=== PATIENT | female | born 1965 | race Caucasian/White ===

== ENCOUNTER 2017-05-26 01:04 | Inpatient (IN) ==
[2017-05-26] MEDS ORDERED: SODIUM CHLORIDE 1,000 ML IV STA (01:43)
[2017-05-26] MEDS ORDERED: HUMULIN R SUBCUT STA (01:43)
--- NOTE | 2017-05-26 01:48 | ED.PDOC ---
General ED Provider: Dr. ZAIN JIM Chief Complaint: Diabetes Stated Complaint: Has been here from out of town for two week now has noticed elevated blood glucose for 3 days. Has had polyurea and increased thirst. states that her blood glucose has been poorly controlled over the last few months with A1c > 10. the last was 13 few weeks ago. States she is stressed due to son and [id number] being incarcerated and has not eating much. Started having nausea and vomiting today. Has been hospitalized before for blood glucose > 1000 Time Seen by Physician: 01:46 Mode of Arrival: Walk-In Information Source: Patient Exam Limitations: No limitations Nursing and Triage Documentation Reviewed and Agree: Yes Endocrine Complaint Exam - Diabetic Complication Complaint/Exam Onset/Duration: 3 days Symptoms Are: Still present Timing: Constant Initial Severity: Moderate Current Severity: Moderate Aggravating: Reports: Medication change Alleviating: Reports: None Associated Signs and Symptoms: Reports: Polydipsia, Polyuria, Abdominal pain ( from vomiting ), Nausea, Vomiting Related History: Reports: DM 2 Last Glucometer Reading: HIGH Cardiac Risk Factors: Reports: DM, Hypertension CVA Risk Factors: Reports: DM, Hypertension Serious Bacterial Infection Risk Factors: Reports: None Acetone on Breath: No Dry Mucous Membranes: No Kussmaul Respirations: No Glascow Coma Scale (see protocol): 15 Focal Weakness: None Focal Sensory Loss: None Gait: Normal Nystagmus Present: No Gag Reflex Present: No Romberg Test Positive: No Babinski Sign: Negative Right, Negative Left Heel to Toe Normal: No Differential Diagnoses: Diabetic Ketoacidosis, Hyperosmolar State, Hyperglycemia Review of Systems - Review Of Systems Constitutional: Reports: Weakness, Loss of appetite Eyes: Reports: No symptoms Ears, Nose, Mouth, Throat: Reports: No symptoms Respiratory: Reports: No symptoms Cardiac: Reports: No symptoms GI: Reports: Abdominal pain, Nausea, Vomiting : Reports: No symptoms Musculoskeletal: Reports: No symptoms Skin: Reports: No symptoms Neurological: Reports: Anxiety, Depressed, Emotional problems Endocrine: Reports: Increased thirst Hematologic/Lymphatic: Reports: No symptoms All Other Systems: Reviewed and Negative Past Medical History - Past Medical History Endocrine: Reports: DM 2, Hypothyroid Cardiovascular: Reports: Hypertension Respiratory: Reports: COPD Hematological: Reports: None Gastrointestinal: Reports: GERD Genitourinary: Reports: None Neuro/Psych: Reports: TIA, Anxiety, Depression Musculoskeletal: Reports: Back Pain (Herniated discs) Cancer: Reports: None Last Menstrual Period: PT HAS HAD A HYSTERECTOMY - Surgical History General Surgical History: Reports: Hysterectomy, (x2), Hernia Repair - Family History Family History: Reports: Unknown - Social History Smoking Status: Current every day smoker, Light tobacco smoker Hx Substance Use: No Alcohol Screening: None - Immunizations Tetanus Shot up to Date: Yes Physical Exam - Physical Exam Appearance: Ill-appearing Ill-appearing: Moderate Pain Distress: Moderate Eyes: IRVIN, EOMI, Conjunctiva clear ENT: Nose normal, Dry mucosa Neck: Supple Respiratory: Airway patent, Breath sounds clear, Breath sounds equal, Respirations nonlabored Cardiovascular: Pulses normal, No rub, No murmur, Tachycardia GI/: Soft, Nontender, No masses, Bowel sounds normal, No Organomegaly Musculoskeletal: Normal strength, ROM intact, No edema, No calf tenderness Skin: Warm, Dry, Normal color Neurological: Sensation intact, Motor intact, Alert, Oriented Psychiatric: Anxious Physician Notification - Case Discussed Physician Notified: Dr Webb Time of Notification: 02:45 Critical Care Note - Critical Care Note Total Time (mins): 35 Course - Course Hematology/Chemistry: 05/26/17 01:52 Orders, Labs, Meds: Lab Review 05/26/17 01:52 WBC 10.96 H RBC 4.85 Hgb 14.2 Hct 40.6 MCV 83.7 MCH 29.3 MCHC 35.0 RDW Coeff of Carlos A 13.2 Plt Count 170 Immature Gran % (Auto) 0.4 Neut % (Auto) 55.1 Lymph % (Auto) 36.0 Cooke % (Auto) 5.0 Eos % (Auto) 2.5 Baso % (Auto) 1.0 Immature Gran # (Auto) 0.0 Neut # 6.0 Lymph # 4.0 H Cooke # 0.6 Eos # 0.3 Baso # 0.1 Orders Category Date Time Status ABG DRAW REQUEST Stat CARDIO 05/26/17 01:48 Ordered BLOOD GLUCOSE MONITORING Q1HR CARE 05/26/17 01:44 Active ED ACCUCHECK ASSESSMENT .ONCE EMERGENCY 05/26/17 01:43 Active ED IV/MEDIPORT/POWERPORT .ONCE EMERGENCY 05/26/17 01:43 Active ABG Stat LAB 05/26/17 01:48 Ordered CBC W/ AUTO DIFF Stat LAB 05/26/17 01:52 Completed COMPREHENSIVE METABOLIC PANEL Stat LAB 05/26/17 01:52 Received 0.9 % Sodium Chloride [Saline Flush] MEDS 05/26/17 01:43 Ordered 1 syr IVF PRN PRN Insulin Regular, Human [Humulin R] MEDS 05/26/17 01:43 Discontinued 12 unit SUBCUT ONCE STA Ondansetron HCl/Pf [Zofran 4 mg/2 ml] MEDS 05/26/17 01:49 Discontinued 4 mg IVP ONCE STA Pantoprazole Sodium [Protonix IV] MEDS 05/26/17 01:49 Discontinued 40 mg IVP ONCE STA Sodium Chloride 0.9% [Sodium Chloride] 1,000 ml MEDS 05/26/17 01:43 Active IV BOLUS Medications Generic Name Dose Route Start Last Admin Trade Name Freq PRN Reason Stop Dose Admin Sodium Chloride 1,000 mls @ 1,000 mls/hr 05/26/17 01:43 Sodium Chloride IV 05/26/17 02:42 BOLUS STA Sodium Chloride 1 syr 05/26/17 01:43 Saline Flush IVF PRN PRN To flush IV Discontinued Medications Generic Name Dose Route Start Last Admin Trade Name Freq PRN Reason Stop Dose Admin Insulin Human Regular 12 unit 05/26/17 01:43 Humulin R SUBCUT 05/26/17 01:44 ONCE STA Ondansetron HCl 4 mg 05/26/17 01:49 Zofran 4 Mg/2 Ml IVP 05/26/17 01:50 ONCE STA Pantoprazole Sodium 40 mg 05/26/17 01:49 Protonix Iv IVP 05/26/17 01:50 ONCE STA Vital Signs: Temp Pulse Resp BP Pulse Ox 05/26/17 01:05 97.1 F L 116 H 18 163/80 H 98 Departure - Departure Time of Disposition: 03:08 Disposition: ADMITTED INPATIENT Discharge Problem: Hypovolemia dehydration Hyperglycemia due to type 2 diabetes mellitus Qualifiers: Diabetes mellitus nursing home insulin use: with nursing home use Qualified Code(s): E11.65 - Type 2 diabetes mellitus with hyperglycemia; 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; Z79.4 - long-term (current) use of insulin; Z79.4 - long-term (current) use of insulin; Z79.4 - long-term (current) use of insulin Condition: Fair Pt referred to PMD for follow-up: Yes Allergies/Adverse Reactions: Allergies iodine Adverse Reaction (Verified 05/26/17 01:24) phenobarbital Adverse Reaction (Verified 05/26/17 01:24) Home Medications: Ambulatory Orders Bupropion HCl [Wellbutrin Sr] 150 mg PO DAILY 05/26/17 Cetirizine HCl [Zyrtec] 10 mg PO DAILY 05/26/17 Citalopram Hydrobromide [Celexa] 20 mg PO DAILY 05/26/17 Clonazepam [Klonopin] 1 mg PO BID 05/26/17 Clopidogrel Bisulfate [Plavix] 75 mg PO DAILY 05/26/17 Diclofenac Sodium [Voltaren 1% Gel] 1 applic TP BID PRN 05/26/17 Docusate Sodium 100 mg PO BID PRN 05/26/17 Gabapentin 300 mg PO BID 05/26/17 Gabapentin 600 mg PO BEDTIME 05/26/17 Hydrocortisone Acetate [Anusol-Hc] 25 mg RC DAILY PRN 05/26/17 Insulin Aspart [Novolog Flexpen] 1 unit SQ DIRECTED PRN 05/26/17 Insulin Degludec [Tresiba Flextouch U-100] 56 unit SQ DAILY 05/26/17 Lansoprazole [Prevacid] 30 mg PO DAILY 05/26/17 Levothyroxine Sodium [Synthroid] 50 mcg PO QDAC 05/26/17 Metformin Ex Release HCl [Glucophage Xr 500Mg] 1,000 mg PO BID 05/26/17 Ondansetron HCl [Zofran Tab] 4 mg PO Q8H PRN 05/26/17 Oxycodone-Acetaminophen 10-325 [Percocet 10-325] 1 tab PO DIRECTED 05/26/17 Simethicone [Gas Relief] 80 mg PO DAILY 05/26/17 Simvastatin [Zocor] 40 mg PO BEDTIME 05/26/17 Urea [Aqua Care] 1 applic TP BID 05/26/17
[2017-05-26] MEDS ORDERED: ZOFRAN 4 MG/2 ML IVP STA (01:49)
[2017-05-26] MEDS ORDERED: PROTONIX IV IVP STA (01:49)
[2017-05-26 01:53] LABS: BASOPHILS # (AUTO) 0.1 K/uL (0-0.2); EOSINOPHILS # (AUTO) 0.3 K/ul (0.0-0.7); EOSINOPHILS % (AUTO) 2.5 % (0.0-7.0); HEMATOCRIT 40.6 % (37.0-47.0); HEMOGLOBIN 14.2 g/dl (12.0-16.0); IMMATURE GRANULOCYTE % (AUTO) 0.4 % (0.0-5.0); MEAN CORPUSCULAR HEMOGLOBIN 29.3 pg (27.0-31.0); MEAN CORPUSCULAR VOLUME 83.7 fl (81.0-99.0); MONOCYTES # (AUTO) 0.6 K/uL (0.4-2.0); NEUTROPHILS % (AUTO) 55.1; PLATELET COUNT 170 10^3/uL (140-440); RED BLOOD COUNT 4.85 10^6/ul (4.20-5.40); WHITE BLOOD COUNT 10.96 K/ul (4.6-10.2)
[2017-05-26 02:13] LABS: ALBUMIN 3.4 g/dL (3.4-5.0); ALBUMIN/GLOBULIN RATIO 0.71; ANION GAP 16.2; BILIRUBIN,TOTAL 0.88 mg/dL (0.00-1.20); BUN/CREATININE RATIO 2.91; CALCIUM 9.8 mg/dL (8.2-10.2); CREATININE 1.03 mg/dL (0.60-1.30); POTASSIUM 3.2 mmol/L (3.5-5.10); TOTAL PROTEIN 8.2 g/dL (6.4-8.2)
[2017-05-26 02:31] LABS: ABG BASE EXCESS -1 (-2.0-2.0); ABG HCO3 22.7 (22.0-26.0); ABG PH 7.472 (7.35-7.45); ABG TCO2 24 (22.0-28.0)
[2017-05-26] MEDS ORDERED: ZOFRAN 4 MG/2 ML IVP PRN (02:39)
[2017-05-26 02:49] LABS: ADD URINE MICROSCOPIC NO; BILIRUBIN,URINE Negative (NEGATIVE); KETONES,URINE Negative (NEGATIVE); LEUKOCYTE ESTERASE ,URINE Negative (NEGATIVE); NITRITE,URINE Negative (NEGATIVE); PROTEIN,URINE Negative (NEGATIVE); URINE, BLOOD Negative (NEGATIVE)
[2017-05-26] MEDS ORDERED: COLACE PO PRN (02:51)
[2017-05-26] MEDS ORDERED: NON-FORMULARY MEDICATION (Diclofenac Sodium 1 APPLIC) TP PRN (02:51)
[2017-05-26] MEDS ORDERED: PERCOCET 10-325 PO SCH (03:00)
[2017-05-26] MEDS ORDERED: SODIUM CHLORIDE 0.9%-KCL 20 MEQ 1,000 ML IV SCH (03:00)
[2017-05-26] MEDS ORDERED: KCL 20 MEQ IV SCH (03:06)
[2017-05-26] MEDS ORDERED: SODIUM CHLORIDE 0.9% IV SCH (03:06)
[2017-05-26] MEDS: SODIUM CHLORIDE 1,000 ML IV SCH ×3 (03:06→05:36)
[2017-05-26] MEDS ORDERED: MORPHINE 4 MG/ML VIAL IVP STA (03:07)
[2017-05-26] MEDS ORDERED: REGLAN IVP STA (03:07)
[2017-05-26 04:13] VITALS: BMI 26.6
[2017-05-26] MEDS ORDERED: MORPHINE 4 MG/ML SYRINGE ONE (04:22)
[2017-05-26] MEDS: HUMULIN R SUBCUT PRN ×9 (04:27→20:10)
[2017-05-26] MEDS: SYNTHROID PO SCH (06:08)
[2017-05-26] MEDS: PROTONIX IV IVP SCH (08:50)
[2017-05-26] MEDS: LOVENOX SUBCUT SCH (08:54)
[2017-05-26] MEDS: GLUCOPHAGE PO SCH ×2 (08:56→16:54)
[2017-05-26] MEDS: NEURONTIN PO SCH ×2 (08:56→14:02)
[2017-05-26] MEDS: ZYRTEC PO SCH (08:57)
[2017-05-26] MEDS: MYLICON PO SCH (08:57)
[2017-05-26] MEDS: PLAVIX PO SCH (08:57)
[2017-05-26] MEDS: WELLBUTRIN SR PO SCH (08:57)
[2017-05-26] MEDS: CELEXA PO SCH (08:58)
[2017-05-26] MEDS ORDERED: NEURONTIN PO SCH ×2 (09:00→21:00)
[2017-05-26] MEDS: KLONOPIN PO SCH ×2 (09:00→22:08)
[2017-05-26] MEDS ORDERED: GLUCOPHAGE XR 500MG PO SCH (09:00)
[2017-05-26] MEDS ORDERED: NON-FORMULARY MEDICATION (Clonazepam [Klonopin] 1 MG) PO SCH ×22 (09:00)
[2017-05-26] MEDS: PERCOCET 10-325 PO PRN ×4 (10:07→22:09)
[2017-05-26] MEDS: UREA TP SCH ×2 (10:12→22:08)
[2017-05-26] MEDS: SODIUM CHLORIDE 0.9%-KCL 20 MEQ 1,000 ML IV SCH ×2 (12:25→19:56)
--- NOTE | 2017-05-26 13:26 | CT ---
EXAM: CT of the abdomen pelvis without contrast History: Abdominal pain and hernia. Technique: Multiplanar CT images through the abdomen pelvis were obtained without the administration of IV contrast Findings: Lung bases are free of consolidation. Calcified granulomas seen within the lower lungs. No acute osseous abnormalities. Status post cholecystectomy. The liver is enlarged and demonstrates fatty infiltration with nodular surface contour. Calcified granulomas within the spleen. No peripancreatic inflammation. Adrenal g lands are unremarkable. There are upper abdominal collateral vessels. The appendix is normal. No r enal stones and no hydronephrosis. No bladder wall thickening. Uterus is not seen. Previous lower anterior abdominal wall hernia repair. No protruding bowel. 4.5 cm x 2.4 cm lobulated fat containin g lesion near the site of previous hernia repair with adjacent scarring. Impression: 1. No acute intra-abdominal or pelvic process. 2. Cirrhotic appearing liver. 3. Upper abdominal collateral vessels suggesting portal venous hypertension. 4. Previous lower anterior abdominal hernia repair. There is lobulated fat density and scarring lamont r the hernia repair site probably related to fat necrosis. There is no bowel obstruction.
[2017-05-26] MEDS ORDERED: LANTUS SUBCUT SCH (21:00)
[2017-05-26] MEDS ORDERED: ZOCOR PO SCH (21:00)
[2017-05-27] MEDS: PERCOCET 10-325 PO PRN ×3 (02:17→10:05)
[2017-05-27] MEDS: HUMULIN R SUBCUT PRN ×2 (02:18→11:30)
[2017-05-27] MEDS: SODIUM CHLORIDE 0.9%-KCL 20 MEQ 1,000 ML IV SCH (02:23)
[2017-05-27 05:40] LABS: BASOPHILS # (AUTO) 0.1 K/uL (0-0.2); BASOPHILS % (AUTO) 0.7 % (0.0-3.0); EOSINOPHILS # (AUTO) 0.3 K/ul (0.0-0.7); EOSINOPHILS % (AUTO) 3.7 % (0.0-7.0); HEMATOCRIT 34.6 % (37.0-47.0); IMMATURE GRANULOCYTE % (AUTO) 0.3 % (0.0-5.0); MEAN CORPUSCULAR HEMOGLOBIN 29.6 pg (27.0-31.0); MEAN CORPUSCULAR HGB CONC 34.7 (31.8-35.4); MEAN CORPUSCULAR VOLUME 85.2 fl (81.0-99.0); MONOCYTES # (AUTO) 0.3 K/uL (0.4-2.0); MONOCYTES % (AUTO) 4.3 (0-10); NEUTROPHILS # (AUTO) 3.2 K/ul (2.0-6.9); PLATELET COUNT 122 10^3/uL (140-440); RED BLOOD COUNT 4.06 10^6/ul (4.20-5.40); WHITE BLOOD COUNT 6.71 K/ul (4.6-10.2)
[2017-05-27] MEDS: SYNTHROID PO SCH (05:53)
[2017-05-27 06:06] LABS: ALBUMIN 2.7 g/dL (3.4-5.0); ALBUMIN/GLOBULIN RATIO 0.79; ANION GAP 9.9; BILIRUBIN,TOTAL 0.47 mg/dL (0.00-1.20); BUN/CREATININE RATIO 5.97; CALCIUM 8.9 mg/dL (8.2-10.2); CHOL/HDL RATIO 7.7 (4.5-5.5); CREATININE 0.67 mg/dL (0.60-1.30); POTASSIUM 3.9 mmol/L (3.5-5.10); TOTAL PROTEIN 6.1 g/dL (6.4-8.2)
[2017-05-27] MEDS: WELLBUTRIN SR PO SCH (08:41)
[2017-05-27] MEDS: MYLICON PO SCH (08:41)
[2017-05-27] MEDS: GLUCOPHAGE PO SCH (08:41)
[2017-05-27] MEDS: CELEXA PO SCH (08:41)
[2017-05-27] MEDS: KLONOPIN PO SCH (08:41)
[2017-05-27] MEDS: ZYRTEC PO SCH (08:41)
[2017-05-27] MEDS: PLAVIX PO SCH (08:41)
[2017-05-27] MEDS: LOVENOX SUBCUT SCH (08:42)
[2017-05-27] MEDS: NEURONTIN PO SCH (08:42)
[2017-05-27] MEDS: UREA TP SCH (08:44)
[2017-05-27 09:32] VITALS: BP 137/87; TEMP 97
[2017-05-27] MEDS: PROTONIX IV IVP SCH (10:06)
--- NOTE | 2017-05-27 10:45 | HP ---
DATE OF SERVICE: 05/26/17 CHIEF COMPLAINT: Elevated blood sugars. HISTORY OF PRESENT ILLNESS: The patient is from out of town, has been here for approximately two weeks. She has been out of Metformin for one week. She states glucometer is not working. It has been running high for a couple of days and not able to keep any food down. She has nausea and vomiting, excessive thirst, checked sugar and it was high. Abdominal pain and vomiting, worried about worsening of hernia in the belly. At that time, the patient came to the emergency room and was seen by Dr. Duff in the emergency room. Initial blood sugar was 607. At that time, the rest of the blood work was done and the patient had hyponatremia. ABG, not acidotic. Stools were negative. Urine was negative for any infection. The patient, at that time, was admitted to the hospital for IV fluids and coverage for hyperosmolar, hyperglycemia. REVIEW OF SYSTEMS: CONSTITUTIONAL: No fever, no chills. HEENT: Normal. ENDOCRINE: No weight gain; no weight loss. High blood sugar. CVS: No chest pain. No PND, no orthopnea. No shortness of breath. No PND, no orthopnea. RESPIRATORY: No cough, no congestion. No hemoptysis. GI: Nausea and vomiting, abdominal pain. No melena. : No hematuria. No polyuria. MUSCULOSKELETAL: No joint swelling. PSYCHIATRIC: Anxious. No depression. No suicidal thoughts. No homicidal thoughts. SKIN: Intact, no open lesions. PAST MEDICAL HISTORY: 1. Diabetes 2. Hypertension 3. Dyslipidemia 4. Coronary artery disease 5. Angina 6. Peripheral vascular disease 7. Headache 8. COPD 9. Nicotine use 10. Irritable bowel syndrome 11. Hiatal hernia 12. Ventral hernia 13. 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 Anxiety/depression 16. Substance use. PAST SURGICAL HISTORY: 1. 2. Hemorrhoidectomy 3. Cholecystectomy 4. Double hernia repair 5. Umbilical hernia repair 6. Tonsillectomy PERSONAL HISTORY: Does smoke. No alcohol, no drugs. FAMILY HISTORY: Significant for high blood pressure, lymphoma B-Cell. MEDICATIONS: (HOME) 1. Oxycodone 2. Glucophage 3. Novolg 4. Synthroid 5. Simethicone - gas relief 6. Neurontin 7. Docusate 8. Ultram 9. Plavix 10. Klonopin 11. Celexa 12. Wellbutrin 13. Urea 14. Prevacid 15. Zyrtec 16. Tresiba ALLERGIES: IRON, PHENOBARBITOL, LYRICA PHYSICAL EXAMINATION: V/S: BP 125/69, respiratory rate 16, heart rate 96, temperature 98.0, saturation 96. HEENT: Atraumatic, normocephalic. No scleral icterus. Pallor positive. Mucosa dry. NECK: Supple. No JVD, no bruit. No lymphadenopathy. No thyromegaly. HEART: S1, S2 normal. No murmur. No cyanosis or clubbing. No ascites. LUNGS: Clear to auscultation. No rales or rhonchi. ABDOMEN: Soft, mild tenderness. Ventral hernia is seen; tender to touch. Bowel sounds are active. No CVA tenderness. No rigidity or guarding. EXTREMITIES: No cyanosis, clubbing or pedal edema. MUSCULOSKELETAL: Normal joints, no swelling. NEUROLOGIC: The patient is awake, alert, oriented times three. SKIN: Intact; no open lesions. LYMPHATIC: No lymph nodes palpable. LABS: White count 10.96, hemogloblin 14.2, hematocrit 40.6, platelet count 170. Sodium 130, potassium 3.2, chloride 96, bicarb 21, BUN 3, creatinine 1.03, glucose 607. A1C 13.2. ASSESSMENT: 1. HYPEROSMOLAR 2. HYPERGLYCEMIA 3. PSEUDOHYPONATREMIA 4. HYPOKALEMIA 5. ABDOMINAL PAIN, RULE OUT ANY OBSTRUCTION 6. DIABETES 7. HYPERTENSION 8. CAD 9. PERIPHERAL VASCULAR DISEASE 10. DEPRESSION PLAN: 1. Admit patient to SCU. 2. Will resume home medication, the patient run out of medication. 3. CT scan of abdomen and pelvis. 4. IV fluids. 5. Accu-Cheks every two hours with coverage. TIME SPENT: MORE THAN 70 minutes MTDD
--- NOTE | 2017-07-15 14:49 | DS ---
DATE OF SERVICE: 05/27/17 FINAL DIAGNOSIS: 1. HYPEROSMOLAR HYPERGLYCEMIA 2. UNCONTROLLED DIABETES WITH AN A1C OF 13.2 3. HYPONATREMIA 4. HYPOKALEMIA, WHICH HAS BEEN CORRECTED 5. CORONARY ARTERY DISEASE 6. PERIPHERAL VASCULAR DISEASE 7. ANGINA 8. MIGRAINE HEADACHES 9. CHRONIC OBSTRUCTIVE PULMONARY DISEASE 10. IRRITABLE BOWEL SYNDROME 11. HIATAL HERNIA 12. GERD 13. DJD OF THE SPINE 14. OSTEOARTHRITIS 15. HYSTERECTOMY 16. 17. CHOLECYSTECTOMY PLAN: 1. Discharge the patient home. 2. Continue to take Tresiba 56 units daily. 3. Accuchecks with NovoLog sliding scale. 4. Prescriptions were sent to [facility] in [place], [place]. 5. Please make an appointment and schedule it at [facility]. 6. Continue the rest of the home medications; Wellbutrin, Zyrtec, Celexa, Klonopin, Plavix, Docusate, Neurontin, Hydrocortisone, NovoLog, Tresiba, Prevacid, Synthroid, Glucophage, Zofran, Oxycodone, Zocor. 7. Diet: 1800 ADA diet. 8. Activity: As much as tolerated. DISEASE SPECIFIC EDUCATION: About hyperosmolar hyperglycemia, DKA, noncomplaince and medications were discussed. HOSPITAL COURSE: Ary Olson, who is a 51 year old female, came to the emergency room as her sugars were very high, in the 600's. The patient was out of town and had been here for two weeks and did not have her medications. Sugars were increasing and so she came to the emergency room and was found to hyperosmolar hyperglycemia with a hemoglobin A1C of 13.2. Sugars were 602. Sodium 130, potassium 3.2. The patient was given IV fluids and admitted to the hospital. By the next day the patient's sugars were 228. The patient had some family work were she has to leave now. She did not want to stay in the hospital. I requested her to stay in the hospital as going like this can aggravate or exacerbate the hyperosmolar hyperglycemia and push the patient into another DK. She verbalized understanding and she states that as she is from out of town and she wants to go back to her town and go to the hospital there. As the patient was sounding to be responsible and verbalized understanding of all of the complications, the patient was discharged to home. Time spent on the patient is more than 55 minutes today. JOANA
== END 2017-05-27 13:15 | disposition home or self-care (01) | DRG 637 ==
LOC: ED 01:04 → SCU 02:52
PROVIDERS: ADMIT Emergency Medicine; ATTEND Emergency Medicine
DX: E11.65 Type 2 diabetes mellitus with hyperglycemia (principal); E11.00 Type 2 diabetes mellitus with hyperosmolarity without nonketotic hyperglycemic-hyperosmolar coma (NKHHC); E87.1 Hypo-osmolality and hyponatremia; E86.1 Hypovolemia; R10.9 Unspecified abdominal pain; E87.6 Hypokalemia; I25.119 Atherosclerotic heart disease of native coronary artery with unspecified angina pectoris; I73.9 Peripheral vascular disease, unspecified; G43.909 Migraine, unspecified, not intractable, without status migrainosus; J44.9 Chronic obstructive pulmonary disease, unspecified; K58.9 Irritable bowel syndrome, unspecified; K44.9 Diaphragmatic hernia without obstruction or gangrene; K21.9 Gastro-esophageal reflux disease without esophagitis; M47.9 Spondylosis, unspecified; M19.90 Unspecified osteoarthritis, unspecified site; Z86.73 Personal history of transient ischemic attack (TIA), and cerebral infarction without residual deficits; Z79.4 Long term (current) use of insulin; Z79.02 Long term (current) use of antithrombotics/antiplatelets; Z90.710 Acquired absence of both cervix and uterus; Z90.49 Acquired absence of other specified parts of digestive tract
CPT/HCPCS: 36415; 80053; 80061; 81001; 82009; 82803; 82962; 83036; 83930; 84443; 85025; 87081; 96361; 96372; 96374; 96375; 99223; 99239

== ENCOUNTER 2017-06-15 19:40 | Emergency (ER) ==
[2017-06-15 19:49] VITALS: BP 139/85; TEMP 99.2; BMI 26.9
--- NOTE | 2017-06-15 19:58 | ED.PDOC ---
General ED Provider: Dr. ZAIN JIM Chief Complaint: Fall Stated Complaint: jesus is a 51 year old female who reporst falling down 3 wooden stairs outside while wearing slippery clogs 4 days ago. States that she has back pain, ringing inher ears and scotomas, States her lower mid back is painful wirh ratiation to the left back. complains of pain with breathing. Also states her prescription pain medication got lost while moving to his son's home Time Seen by Physician: 19:51 Mode of Arrival: Walk-In Information Source: Patient Exam Limitations: No limitations Nursing and Triage Documentation Reviewed and Agree: Yes Trauma/Injury Complaint Exam - Trauma Complaint/Exam Location of Pain or Injury: Reports: Back Mechanism of Injury: Reports: Fall Onset/Duration: 4 days ago Symptoms Are: Still present Timing of Treatment: Delayed Initial Severity: Moderate Current Severity: Severe Character: Reports: Dull Aggravating: Reports: Movement, Weight-bearing Alleviating: Reports: None Associated Signs and Symptoms: Reports: Painful respiration. Denies: LOC, Confusion, Memory loss, Lethargy, Vomiting, Bleeding, Bruising, Swelling, Extremity disuse, Hoarseness, Dysphagia, Hemoptysis, Significant blood loss : No Glascow Coma Scale (see protocol): 15 Compartment Syndrome Risk Factors: Absent: Pain, Paralysis, Pallor, Pulselessness, Paresthesias Trauma Findings: Present: Limited ROM (of her back due to pain ). Absent: [place] eyes, Hemotympanum, Nasal deformity, Dental tenderness, Dental injury, Dental malocclusion, Neck tenderness, Neck spasm, SubQ Air, Crepitus, Airway obstructed, Trachea displaced Skin Findings: Present: Normal findings Differential Diagnoses: Contusions, Fracture, Sprain, Strain Review of Systems - Review Of Systems Constitutional: Reports: No symptoms Ears, Nose, Mouth, Throat: Reports: Ear pain Cardiac: Reports: Lightheadedness GI: Reports: No symptoms : Reports: No symptoms Musculoskeletal: Reports: Back pain Neurological: Reports: Anxiety All Other Systems: Reviewed and Negative Past Medical History - Past Medical History Endocrine: Reports: DM 2, Hypothyroid Cardiovascular: Reports: Hypertension Respiratory: Reports: COPD Hematological: Reports: None Gastrointestinal: Reports: GERD Genitourinary: Reports: None Neuro/Psych: Reports: TIA, Anxiety, Depression Musculoskeletal: Reports: Back Pain (Herniated discs) Cancer: Reports: None Last Menstrual Period: 2006 hysterectomy - Surgical History General Surgical History: Reports: Hysterectomy, (x2), Hernia Repair - Family History Family History: Reports: Unknown - Social History Smoking Status: Current every day smoker, Light tobacco smoker Hx Substance Use: No Alcohol Screening: None - Immunizations Tetanus Shot up to Date: Yes Physical Exam - Physical Exam Appearance: Ill-appearing Ill-appearing: Mild Pain Distress: Severe Neck: Supple Respiratory: Airway patent, Breath sounds clear, Breath sounds equal, Respirations nonlabored Cardiovascular: Pulses normal, No rub, No murmur, Tachycardia GI/: Soft Musculoskeletal: Limited ROM (due to pain ) Skin: Warm, Dry Neurological: Sensation intact, Motor intact, Cranial nerves intact Psychiatric: Anxious Interpretation - Radiology Interpretation Radiology Interpretation By: Radiologist Radiology Results: Positive (T 12 conpression fracture) Exam Interpreted: CT Scan Critical Care Note - Critical Care Note Total Time (mins): 0 Course - Course Orders, Labs, Meds: Orders Category Date Time Status Insulin Regular, Human [Humulin R] MEDS 06/15/17 21:17 Discontinued 8 unit SUBCUT ONCE STA Ketorolac Tromethamine [Toradol] MEDS 06/15/17 21:17 Discontinued 60 mg IM ONCE STA Orphenadrine Citrate [Norflex] MEDS 06/15/17 21:17 Discontinued 60 mg IM ONCE STA ANKLE, RIGHT MIN 3 VIEWS Stat RADS 06/15/17 19:[address] ABDOMEN/PELVIS WO CONTRAST Stat RADS 06/15/17 20:[address] CERVICAL SPINE W/O CONTRAST Stat RADS 06/15/17 19:[address] CHEST W/O CONTRAST Stat RADS 06/15/17 19:[address] HEAD W/O CONTRAST Stat RADS 06/15/17 19:[address] LUMBAR SPINE W/O CONTRAST Stat RADS 06/15/17 19:[address] PELVIS W/O CONTRAST Stat RADS 06/15/17 19:53 Completed FOOT, RIGHT 3 VIEWS Stat RADS 06/15/17 19:54 Completed Medications Discontinued Medications Generic Name Dose Route Start Last Admin Trade Name Freq PRN Reason Stop Dose Admin Insulin Human Regular 8 unit 06/15/17 21:17 06/15/17 21:33 Humulin R SUBCUT 06/15/17 21:18 8 unit ONCE STA Administration Ketorolac Tromethamine 60 mg 06/15/17 21:17 06/15/17 21:24 Toradol IM 06/15/17 21:18 60 mg ONCE STA Administration Orphenadrine Citrate 60 mg 06/15/17 21:17 06/15/17 21:24 Norflex IM 06/15/17 21:18 60 mg ONCE STA Administration Vital Signs: Temp Pulse Resp BP Pulse Ox 06/15/17 19:40 99.2 F 122 H 20 139/85 98 Departure - Departure Time of Disposition: 22:27 Disposition: HOME SELF-CARE Discharge Problem: Compression fracture of T12 vertebra Hyperglycemia due to type 2 diabetes mellitus Qualifiers: Diabetes mellitus correction insulin use: without superintendent container terminal use Qualified Code(s ): E11.65 - Type 2 diabetes mellitus with hyperglycemia Back pain Qualifiers: Back pain location: low back pain Chronicity: chronic Back pain laterality: midline Sciatica presence: with sciatica Sciatica laterality: sciatica of right side Qualified Code(s): M54.41 - Lumbago with sciatica, right side Instructions: Muscle Spasm (ED), Back Pain (ED), Diabetic Hyperglycemia (ED) Condition: Fair Pt referred to PMD for follow-up: Yes Additional Instructions: Follow up with the clinic for medications refill Prescriptions: Cyclobenzaprine HCl [Flexeril] 5 mg PO TID PRN #14 tablet PRN Reason: Spasms Allergies/Adverse Reactions: Allergies iodine Adverse Reaction (Verified 05/26/17 03:34) Blisters phenobarbital Adverse Reaction (Verified 05/26/17 03:34) Erythema pregabalin [From Lyrica] Adverse Reaction (Verified 05/26/17 03:34) Anaphylaxis Home Medications: Ambulatory Orders Bupropion HCl [Wellbutrin Sr] 150 mg PO DAILY 05/26/17 Cetirizine HCl [Zyrtec] 10 mg PO DAILY 05/26/17 Citalopram Hydrobromide [Celexa] 20 mg PO DAILY 05/26/17 Clonazepam [Klonopin] 1 mg PO BID 05/26/17 Clopidogrel Bisulfate [Plavix] 75 mg PO DAILY 05/26/17 Diclofenac Sodium [Voltaren 1% Gel] 1 applic TP BID PRN 05/26/17 Docusate Sodium 100 mg PO BID PRN 05/26/17 Gabapentin 300 mg PO BID BREAKFAST&LUNCH 05/26/17 Gabapentin 600 mg PO BEDTIME 05/26/17 Hydrocortisone Acetate [Anusol-Hc] 25 mg RC DAILY PRN 05/26/17 Insulin Aspart [Novolog Flexpen] 1 unit SQ DIRECTED PRN 05/26/17 Insulin Degludec [Tresiba Flextouch U-100] 56 unit SQ DAILY 05/26/17 Lansoprazole [Prevacid] 30 mg PO DAILY 05/26/17 Levothyroxine Sodium [Synthroid] 50 mcg PO QDAC 05/26/17 Metformin Ex Release HCl [Glucophage Xr 500Mg] 1,000 mg PO BID 05/26/17 Ondansetron HCl [Zofran Tab] 4 mg PO Q8H PRN 05/26/17 Oxycodone-Acetaminophen 10-325 [Percocet 10-325] 10 mg PO Q4-6H PRN 05/26/17 Simethicone [Gas Relief] 80 mg PO DAILY 05/26/17 Simvastatin [Zocor] 40 mg PO BEDTIME 05/26/17 Urea [Aqua Care] 1 applic TP BID 05/26/17 Cyclobenzaprine HCl [Flexeril] 5 mg PO TID PRN #14 tablet 06/15/17 Disposition Discussed With: Patient, Family
--- NOTE | 2017-06-15 20:40 | CT ---
EXAM: CT of the head without contrast History: Head trauma. Technique: Multiplanar CT images through the head were obtained without the administration of IV con trast Findings: Mild to moderate mucosal thickening and fluid within the left maxillary sinus. Mastoid ai r cells are generally clear. No acute calvarial abnormalities. Intracranially the ventricular and cisternal spaces are normal in size, shape and configuration for a patient of this age. No dominant mass or midline shift. No hydrocephalous. No acute intracranial hemorrhage or abnormal extraaxial fluid collections. Impression: 1. No acute intracranial process. 2. Left maxillary sinusitis
--- NOTE | 2017-06-15 20:41 | CT ---
Exam: CT of the chest without contrast History: Chest trauma and pain status post fall Technique: [address] of the chest without intravascular contrast FINDINGS: Lung windows show no infiltrative opacities, suspicious nodules or masses. Granulomatous calcifications of the right and left lower lobe. The heart, great vessels and pericardium show no ac le findings. Mild atherosclerotic calcification of the aorta. No acute findings of the chest wall soft tissues or bony thorax. No acute findings of the upper abdomen. Impression: 1. No acute findings of the chest
--- NOTE | 2017-06-15 20:42 | CT ---
EXAM: CT of the cervical spine without contrast History: Head and neck trauma. Technique: Multiplanar CT images through the cervical spine were obtained without the administration of IV contrast Findings: Visualized upper lungs are free of consolidation. No acute fracture or subluxation of the cervical spine. No prevertebral soft tissue swelling. Prede ntal space is not widened. Mild disc space narrowing at C5-C6 with small anterior osteophytes. Bony spinal canal is not compromised. Impression: No acute osseous abnormality of the cervical spine
--- NOTE | 2017-06-15 20:47 | CT ---
EXAM: CT of the abdomen pelvis without contrast History: Abdominal and pelvic trauma. Comparison: Chest CT 06/15/2017, CT abdomen pelvis 05/26/2017 Technique: Multiplanar CT images through the abdomen pelvis were obtained without the administration of IV contrast Findings: Calcified granulomas within the lung bases. New mild compression fracture involving the driscoll perior endplate of T12. Status post cholecystectomy. Nodular cirrhotic liver again identified. Spleen is borderline enlarge d. No renal stones and no hydronephrosis. No peripancreatic inflammation. Adrenal glands are unrem arkable. Upper abdominal collateral vessels again identified. Postsurgical changes of anterior abdo romina wall hernia repair with persistent fat containing periumbilical hernia measuring 4.8 cm x 2.8 c m. No bowel obstruction. No free air. No bladder wall thickening. Uterus is not seen. No ascites. No perirectal inflammation. Impression: 1. New mild compression fracture involving superior endplate of T12. 2. No acute intra-abdominal or pelvic process. 3. Cirrhosis with stigmata of portal venous hypertension with upper abdominal collateral vessels unc hanged compared to the prior study. 4. Postsurgical changes of anterior abdominal wall hernia repair with persistent fat containing natalie umbilical hernia. No bowel obstruction.
--- NOTE | 2017-06-15 20:59 | CT ---
Exam: CT lumbar spine without contrast History: Trauma with lower back pain Technique: [address] of the lumbar spine with multiplanar reformations FINDINGS: The lumbar spine shows normal alignment. Vertebral body height is maintained. No fractur e lines or suspicious bony lesions. No immediate paravertebral soft tissue abnormalities. Superior endplate concavity of T12 with chronic features favored. The sacrum is intact. Impression: 1. No acute abnormalities of the lumbar spine 2. Superior endplate concavity deformity of T12 with chronic features favored.
--- NOTE | 2017-06-15 21:02 | CT ---
EXAM: CT of the pelvis without contrast History: Pelvic trauma. Comparison: CT abdomen pelvis 06/15/2017 Technique: Multiplanar CT images through the pelvis were obtained without the administration of IV c ontrast Findings: No bladder wall thickening. Ventral hernia repair with persistent fat containing periumbi lical hernia. No acute fracture or dislocation. Bilateral hip joint spaces are preserved. Impression: No acute osseous abnormality
--- NOTE | 2017-06-15 21:09 | DI ---
EXAM: Right ankle, three view. HISTORY: Trauma COMPARISON: None. FINDINGS: Three views of the right ankle were obtained. Alignment is normal. Ankle mortise is unif orm. No fracture is seen. Minimal to moderate soft tissue swelling is seen consistent with ankle spr ain. IMPRESSION: Alignment is normal without fracture. Minimal to moderate soft tissue swelling present consistent with ankle sprain
[2017-06-15] MEDS ORDERED: TORADOL IM STA (21:17)
[2017-06-15] MEDS ORDERED: HUMULIN R SUBCUT STA (21:17)
[2017-06-15] MEDS ORDERED: NORFLEX IM STA (21:17)
--- NOTE | 2017-06-15 21:17 | DI ---
Exam: Right foot three-view History: Trauma and pain Findings / impression: No bony or articular abnormality of the right foot. Negative exam.
== END 2017-06-15 22:34 | disposition home or self-care (01) ==
LOC: ED 19:40
DX: S22.080A Wedge compression fracture of T11-T12 vertebra, initial encounter for closed fracture (principal); M54.41 Lumbago with sciatica, right side; E11.65 Type 2 diabetes mellitus with hyperglycemia; R42 Dizziness and giddiness; W10.9XXA Fall (on) (from) unspecified stairs and steps, initial encounter; F17.210 Nicotine dependence, cigarettes, uncomplicated; Z79.899 Other long term (current) drug therapy
CPT/HCPCS: 82962; 96372; 99283